=== PATIENT | female | born 1960 | race Caucasian/White ===

== ENCOUNTER 2020-11-01 09:15 | Emergency (ER) | payer BC ==
[~2020-11-01] VITALS: Ht 162.6 cm; Wt 63.6 kg
[2020-11-01] MEDS ORDERED: oxyCODONE/APAP 5-325mg tablet PO ONE (11:25)
[2020-11-01 11:55] VITALS: BP 125/84
[2020-11-01] MEDS ORDERED: OXYC-145 PO (12:16)
== END 2020-11-01 12:35 | disposition home or self-care (01) ==
LOC: ER 09:16
DX: R53.1 Weakness (principal); G89.29 Other chronic pain; Z79.899 Other long term (current) drug therapy
CPT/HCPCS: 99283